=== PATIENT | female | born 1965 | race Caucasian/White ===

== ENCOUNTER 2020-12-23 11:50 | Emergency (ER) | payer BC ==
[2020-12-23 12:05] VITALS: RESP 18
[2020-12-23] MEDS ORDERED: SODIUM CHLORIDE 0.9% 1,000 ML IV STA (12:17)
[2020-12-23] MEDS ORDERED: MORPHINE SULFATE 4 MG/ML SYRINGE IVP STA (12:19)
[2020-12-23] MEDS ORDERED: ACETAMINOPHEN TAB 500 MG TAB PO STA (12:19)
[2020-12-23] MEDS ORDERED: ONDANSETRON 4 MG/2 ML VIAL IVP STA (12:19)
[2020-12-23 12:52] LABS: ALT 19 U/L (4-34); AST 30 U/L (14-36); African American GFR (CKD) >90 (>60 ml/min/1.73 sqM); Albumin 4.3 g/dL (3.5-5.0); Alkaline Phosphatase 87 U/L (38-126); Amylase 46 U/L (30-110); Anion Gap 10 mmol/L; Blood Urea Nitrogen 11 mg/dL (7-17); Carbon Dioxide 20 mmol/L (22-30); Chloride 100 mmol/L (98-107); Glucose 118 mg/dL (74-99); Lipase 24 U/L (23-300); Non-African American GFR(CKD) >90 (>60 ml/min/1.73 sqM); Potassium 4.5 mmol/L (3.5-5.1); Sodium 130 mmol/L (137-145); Total Bilirubin 1.2 mg/dL (0.2-1.3); Total Protein 6.9 g/dL (6.3-8.2)
--- NOTE | 2020-12-23 12:54 | ED ---
General Adult HPI - General Chief complaint: Abdominal Pain Stated complaint: abd pain Time Seen by Provider: 12/23/20 12:10 Source: patient, RN notes reviewed, old records reviewed Mode of arrival: ambulatory - History of Present Illness Initial comments: Patient is a 55-year-old female with past medical history remarkable for diverticulitis, back surgeries who presents emergency Department complaining of one-day history of lower abdominal pain. She states that yesterday it started in the left lower quadrant. Similar to her prior diverticulitis pain which was previously managed with antibiotics. She states it did seem to spread somewhat to the right side today but is still persistently normal left lower quadrant. She denies any diarrhea, bloody stools. She is still having bowel movements. She denies constipation. She still passing flatus. She denies any emesis but does endorse some mild nausea. She denies any chest pain, shortness of breath, headaches, weakness, numbness. She states she has chills but no subjective fevers. She does endorse some mild dysuria in the suprapubic abdominal region. She denies any vaginal bleeding or discharge. Denies any hematuria. She has no other acute complaint at this time. She is concerned that this is her typical diverticulitis. - Related Data Home Medications Medication Instructions Recorded Confirmed Atenolol [Tenormin] 50 mg PO DAILY 12/23/20 12/23/20 Oxycodone Myristate [Xtampza ER] 18 mg PO Q12H 12/23/20 12/23/20 oxyCODONE-APAP 5-325MG [Percocet 0.25 - 1 tab PO Q8H PRN 12/23/20 12/23/20 5-325 mg] Previous Rx's Medication Instructions Recorded Amoxicillin/Potassium Clav 1 tab PO Q8HR 14 Days #42 tab 12/23/20 [Augmentin 875-125 Tablet] Ondansetron Odt [Zofran Odt] 4 mg PO Q8HR PRN 3 Days #12 tab 12/23/20 Allergies Allergy/AdvReac Type Severity Reaction Status Date / Time meloxicam [From Mobic] Allergy Dyspnea Verified 12/23/20 13:47 Review of Systems ROS Statement: Those systems with pertinent positive or pertinent negative responses have been documented in the HPI. Review of Systems: CONST: Denies fever EYES: Denies blurry vision ENT: Denies nasal congestion C/V: Denies Chest pain RESP: Denies shortness of breath GI: Endorses abdominal pain : Denies dysuria SKIN: Denies rash. MSK: Denies joint pain. NEURO: Denies headache ROS Other: All systems not noted in ROS Statement are negative. Past Medical History Past Medical History: Hypertension Additional Past Medical History / Comment(s): Diverticulitis Past Surgical History: Back Surgery Additional Past Surgical History / Comment(s): Elbow sx Smoking Status: Current every day smoker Past Alcohol Use History: Rare General Exam - General Exam Comments Initial Comments: General: Appears in mild distress secondary to mild abdominal discomfort. HEAD: Normal with no signs of head trauma. EYES: PERRLA, EOMI, conjunctiva normal, no discharge. ENT: Hearing grossly intact, normal oropharynx. RESPIRATORY: Clear breath sounds bilaterally. No wheezes, rales, or rhonchi. C/V: Regular rate and rhythm. S1 and S2 auscultated, no edema, peripheral pulses 2+ and intact throughout ABD: Abdomen is soft, nondistended. She is tender to palpation in the left lower quadrant and right lower quadrant. She has no CVA tenderness to percussion. There are no peritoneal signs. No rebound tenderness. EXT: Normal range of motion, no obvious deformity SKIN: No rashes or lesions observed on exposed skin. NEURO: Alert and oriented 4. No focal sensory strength deficits. Course Vital Signs 12/23/20 12/23/20 11:59 13:55 Temperature 99.8 F H 97.9 F Pulse Rate 97 74 Respiratory 18 18 Rate Blood Pressure 138/87 117/73 O2 Sat by Pulse 95 97 Oximetry Medical Decision Making - Medical Decision Making Based on the patient's presentation and physical exam, I'm concerned for possible intra-abdominal pathology for her current symptoms, including possible diverticulitis. She does have a history of it. She states she was taking her home Augmentin which she had left over from her prior bout of diverticulitis a few months ago. She is taking 2 total pills. She is no other remarkable symptoms at this time. We will obtain abdominal laboratory studies as well as a CT abdomen and pelvis with contrast. Also obtain urinalysis. She will be given a 1 L fluid bolus in addition to IV Zofran, morphine, as well as by mouth Tylenol she does have a low grade fever. Patient was in agreement with this plan. Laboratory studies are remarkable for a leukocytosis of 16.5. Patient has a mild hyponatremia of 130. Bicarb is mildly decreased to 20. There is no anion gap. Patient's urinalysis is likely contaminated, service 12 squamous epithel ial cells present. Patient's CT abdomen and pelvis with contrast revealed diverticulitis that is uncomplicated. Involving the mid to distal sigmoid colon and left pelvis. On reevaluation, patient states that her pain is much more tolerable at this time. She remains afebrile. She is able to tolerate by mouth intake. I do believe it is safer to be discharged home on oral antibiotics with close follow- up. She was in agreement with the plan. She'll be given contact information for gastroenterology. I signed that she will likely require colonoscopy within the next 6 months. Patient was given a dose of Augmentin prior to discharge.I counseled the patient on a liquid diet and to avoid high fiber foods and solids at this time. I will provide the patient with a prescription for Augmentin every 8 hours for 14 days, Anderw HAYWOOD. I instructed the patient to follow up with their PCP in the next 3 days. I provided contact information for follow up with Dr. Coreas. I explained that the patient should return to the emergency department if they experience any worsening symptoms. Strict return precautions were discussed with the patient. The patient expressed understanding of these instructions. I answered all questions that the patient had. The patient was discharged home in fair condition with their prescriptions and follow up information. - Lab Data Result diagrams: 12/23/20 12:23 12/23/20 12:23 Lab Results 12/23/20 12/23/20 12/23/20 Range/Units 12:23 12:23 12:23 WBC 16.5 H (3.8-10.6) k/uL RBC 5.09 (3.80-5.40) m/uL Hgb 16.2 H (11.4-16.0) gm/dL Hct 47.1 H (34.0-46.0) % MCV 92.6 (80.0-100.0) fL MCH 31.8 (25.0-35.0) pg MCHC 34.4 (31.0-37.0) g/dL RDW 13.6 (11.5-15.5) % Plt Count 333 (150-450) k/uL MPV 7.5 Neutrophils % 80 % Lymphocytes % 11 % Monocytes % 7 % Eosinophils % 0 % Basophils % 1 % Neutrophils # 13.2 H (1.3-7.7) k/uL Lymphocytes # 1.8 (1.0-4.8) k/uL Monocytes # 1.1 H (0-1.0) k/uL Eosinophils # 0.1 (0-0.7) k/uL Basophils # 0.1 (0-0.2) k/uL PT 10.4 (9.0-12.0) sec INR 1.0 (<1.2) APTT 24.1 (22.0-30.0) sec Sodium (137-145) mmol/L Potassium (3.5-5.1) mmol/L Chloride (98-107) mmol/L Carbon Dioxide (22-30) mmol/L Anion Gap mmol/L BUN (7-17) mg/dL Creatinine (0.52-1.04) mg/dL Est GFR (CKD-EPI)AfAm (>60 ml/min/1.73 sqM) Est GFR (CKD-EPI)NonAf (>60 ml/min/1.73 sqM) Glucose (74-99) mg/dL Calcium (8.4-10.2) mg/dL Total Bilirubin (0.2-1.3) mg/dL AST (14-36) U/L ALT (4-34) U/L Alkaline Phosphatase (38-126) U/L Total Protein (6.3-8.2) g/dL Albumin (3.5-5.0) g/dL Amylase (30-110) U/L Lipase (23-300) U/L Urine Color Yellow Urine Appearance Cloudy H (Clear) Urine pH 5.5 (5.0-8.0) Ur Specific [place] 1.023 (1.001-1.035) Urine Protein 1+ H (Negative) Urine Glucose (UA) Negative (Negative) Urine Ketones 2+ H (Negative) Urine Blood Negative (Negative) Urine Nitrite Negative (Negative) Urine Bilirubin 1+ H (Negative) Urine Urobilinogen 4.0 (<2.0) mg/dL Ur Leukocyte Esterase Large H (Negative) Urine RBC 7 H (0-5) /hpf Urine WBC 42 H (0-5) /hpf Ur Squamous Epith Cells 12 H (0-4) /hpf Urine Bacteria Moderate H (None) /hpf Hyaline Casts 10 H (0-2) /lpf Urine Mucus Many H (None) /hpf Blood Type Blood Type Recheck Bld Type Recheck Status Antibody Screen Spec Expiration Date 12/23/20 12/23/20 Range/Units 12:23 12:23 WBC (3.8-10.6) k/uL RBC (3.80-5.40) m/uL Hgb (11.4-16.0) gm/dL Hct (34.0-46.0) % MCV (80.0-100.0) fL MCH (25.0-35.0) pg MCHC (31.0-37.0) g/dL RDW (11.5-15.5) % Plt Count (150-450) k/uL MPV Neutrophils % % Lymphocytes % % Monocytes % % Eosinophils % % Basophils % % Neutrophils # (1.3-7.7) k/uL Lymphocytes # (1.0-4.8) k/uL Monocytes # (0-1.0) k/uL Eosinophils # (0-0.7) k/uL Basophils # (0-0.2) k/uL PT (9.0-12.0) sec INR (<1.2) APTT (22.0-30.0) sec Sodium 130 L (137-145) mmol/L Potassium 4.5 (3.5-5.1) mmol/L Chloride 100 (98-107) mmol/L Carbon Dioxide 20 L (22-30) mmol/L Anion Gap 10 mmol/L BUN 11 (7-17) mg/dL Creatinine 0.73 (0.52-1.04) mg/dL Est GFR (CKD-EPI)AfAm >90 (>60 ml/min/1.73 sqM) Est GFR (CKD-EPI)NonAf >90 (>60 ml/min/1.73 sqM) Glucose 118 H (74-99) mg/dL Calcium 10.0 (8.4-10.2) mg/dL Total Bilirubin 1.2 (0.2-1.3) mg/dL AST 30 (14-36) U/L ALT 19 (4-34) U/L Alkaline Phosphatase 87 (38-126) U/L Total Protein 6.9 (6.3-8.2) g/dL Albumin 4.3 (3.5-5.0) g/dL Amylase 46 (30-110) U/L Lipase 24 (23-300) U/L Urine Color Urine Appearance (Clear) Urine pH (5.0-8.0) Ur Specific [place] (1.001-1.035) Urine Protein (Negative) Urine Glucose (UA) (Negative) Urine Ketones (Negative) Urine Blood (Negative) Urine Nitrite (Negative) Urine Bilirubin (Negative) Urine Urobilinogen (<2.0) mg/dL Ur Leukocyte Esterase (Negative) Urine RBC (0-5) /hpf Urine WBC (0-5) /hpf Ur Squamous Epith Cells (0-4) /hpf Urine Bacteria (None) /hpf Hyaline Casts (0-2) /lpf Urine Mucus (None) /hpf Blood Type O Positive Blood Type Recheck No Previous Record Bld Type Recheck Status CABO Indicated Antibody Screen NEGATIVE Spec Expiration Date 12/26/20202322 Disposition Clinical Impression: Diverticulitis, Abdominal pain, Leukocytosis Disposition: HOME SELF-CARE Condition: Fair Instructions (If sedation given, give patient instructions): Diverticulitis (ED), Diverticulitis Diet (ED) Prescriptions: Amoxicillin/Potassium Clav [Augmentin 875-125 Tablet] 1 tab PO Q8HR 14 Days #42 tab Ondansetron Odt [Zofran Odt] 4 mg PO Q8HR PRN 3 Days #12 tab PRN Reason: Nausea Is patient prescribed a controlled substance at d/c from ED?: No Referrals: Jhony David MD [Primary Care Provider] - 1-2 days Issac Choudhury MD [STAFF PHYSICIAN] - 1-2 days Maci Coreas MD [STAFF PHYSICIAN] - 1-2 days
[2020-12-23 12:56] LABS: Basophils # (A) 0.1 k/uL (0-0.2); Basophils % (A) 1 %; Eosinophils # (A) 0.1 k/uL (0-0.7); Eosinophils % (A) 0 %; HCT 47.1 % (34.0-46.0); HGB 16.2 gm/dL (11.4-16.0); Lymphocytes # (A) 1.8 k/uL (1.0-4.8); Lymphocytes % (A) 11 %; MCH 31.8 pg (25.0-35.0); MCHC 34.4 g/dL (31.0-37.0); MCV 92.6 fL (80.0-100.0); Mean Platelet Volume 7.5; Monocytes # (A) 1.1 k/uL (0-1.0); Monocytes % (A) 7 %; Neutrophils # (A) 13.2 k/uL (1.3-7.7); Neutrophils % (A) 80 %; Platelet Count 333 k/uL (150-450); RBC 5.09 m/uL (3.80-5.40); RDW 13.6 % (11.5-15.5); WBC 16.5 k/uL (3.8-10.6)
[2020-12-23 12:57] LABS: Appearance,Urine Cloudy (Clear); Bacteria,Urine Moderate /hpf; Bilirubin,Urine 1+ (Negative); Blood,Urine Negative (Negative); Color,Urine Yellow; Glucose,Urine (UA) Negative (Negative); Hyaline Casts,Urine 10 /lpf (0-2); Ketones,Urine 2+ (Negative); Leukocyte Esterase,Urine Large (Negative); Mucus,Urine Many /hpf; Nitrite,Urine Negative (Negative); PH, Urine 5.5 (5.0-8.0); Protein,Urine 1+ (Negative); RBC,Urine 7 /hpf (0-5); Specific Gravity,Urine 1.023 (1.001-1.035); Squamous Epithelial Cell,Urine 12 /hpf (0-4); WBC,Urine 42 /hpf (0-5)
[2020-12-23 13:07] LABS: Partial Thromboplastin Time 24.1 sec (22.0-30.0); Prothrombin Time 10.4 sec (9.0-12.0)
--- NOTE | 2020-12-23 13:23 | CT ---
EXAMINATION TYPE: CT abdomen pelvis w con DATE OF EXAM: 12/23/2020 HISTORY: LLQ pain and fever, history of diverticulitis. Pain with urination CT DLP: 474.7mGycm Automated Exposure Control for Dose Reduction was Utilized. CONTRAST: CT scan of the abdomen and pelvis is performed without oral but with IV Contrast, patient injected wi th 100 ml mL of Isovue 300. COMPARISON: None. FINDINGS: LUNG BASES: Mild bibasilar linear scarring and/or atelectasis. Tiny pericardial effusion right anteri or inferior aspect. Bilateral rim calcified breast implants on localizer. LIVER/GB: No significant abnormality is appreciated. PANCREAS: No significant abnormality is seen. SPLEEN: No significant abnormality is seen. ADRENALS: No significant abnormality is seen. KIDNEYS: No significant abnormality is seen. BOWEL: Slightly suboptimal evaluation without enteric contrast. Stomach poorly distended and thus sub optimally evaluated. No suspicious small or large bowel dilatation. Appendix measures upper limits of normal in size without surrounding inflammatory change in the right pelvis. Some scattered colonic diverticula greatest in the left and sigmoid colon. Mild to moderate wall thic kening proximal sigmoid colon becomes more moderate to severe in the left pelvis where there is moder ate to severe ill-defined fluid and fat stranding near axial image 58. No definitive free air. No wel l-formed fluid collection or thick walled drainable abscess. UTERUS/ADNEXA: Anteverted uterus. LYMPH NODES: No greater than 1cm abdominal or pelvic lymph nodes are appreciated. OSSEOUS STRUCTURES: Severe disc space narrowing lumbosacral junction. 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 IMPRESSION: Fairly severe but uncomplicated acute diverticulitis involving mid to distal sigmoid colo n in the left pelvis as detailed above.
[2020-12-23] MEDS ORDERED: AMOXIC-POT CLAV 875-125MG 1 EACH TAB PO STA (13:51)
[2020-12-23 13:57] VITALS: BP 117/73; PULSE 74; TEMP 97.9
== END 2020-12-23 14:12 | disposition home or self-care (01) ==
LOC: EC 11:50
DX: K57.92 Diverticulitis of intestine, part unspecified, without perforation or abscess without bleeding (principal); D72.829 Elevated white blood cell count, unspecified; I10 Essential (primary) hypertension; F17.200 Nicotine dependence, unspecified, uncomplicated; Z79.899 Other long term (current) drug therapy; Z88.8 Allergy status to other drugs, medicaments and biological substances
CPT/HCPCS: 36415; 86900; 86901; 80053; 82150; 83690; 85025; 85610; 85730; 86850; 81001; 87086; 74177; 99284; 96374; 96375; 96361; J2270; J2405; Q9967